=== PATIENT | female | born 1980 | race American Indian/Alaskan Native ===

== ENCOUNTER 2017-07-15 19:39 | Emergency (ER) | payer OTHER ==
[2017-07-15] MEDS ORDERED: NORCO 10/325 ONE (19:59)
[2017-07-15] MEDS ORDERED: NORCO 10/325 PO ONE (20:06)
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
[2017-07-15] MEDS ORDERED: BACTRIM DS PO ONE (21:14)
[2017-07-15] MEDS ORDERED: BOOSTRIX IM ONE (21:14)
[2017-07-15] MEDS ORDERED: THERMAZENE 50 GRAM TP ONE (21:14)
[2017-07-15] MEDS ORDERED: PERCOCET 5/325 PO ONE (21:14)
[2017-07-16 00:19] VITALS: BP 150/100
== END 2017-07-16 00:25 | disposition home or self-care (01) ==
LOC: ED 19:39
DX: T21.22XA Burn of second degree of abdominal wall, initial encounter (principal); T24.112A Burn of first degree of left thigh, initial encounter; T23.102A Burn of first degree of left hand, unspecified site, initial encounter; Y27.0XXA Contact with steam and hot vapors, undetermined intent, initial encounter; Y93.89 Activity, other specified; Y92.89 Other specified places as the place of occurrence of the external cause; Y99.8 Other external cause status
CPT/HCPCS: 90471; 90715